=== PATIENT | male | born 1945 | race Caucasian/White ===

== ENCOUNTER 2017-11-08 14:23 | Emergency (ER) | payer MEDICARE, BC ==
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
[2017-11-08] MEDS ORDERED: Lidocaine 1% with EPINEPHrine 1:100,000 50 ML MDV INFILT ONE (15:10)
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
[2017-11-08] MEDS ORDERED: Diphtheria,Pertussis(Acell),Tetanus Vaccine 0.5 ML SDV IM ONE (16:44)
[2017-11-08] MEDS ORDERED: Bacitracin Oint 1 GM U/D Packet TOP ONE (16:44)
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
--- NOTE | 2017-11-09 09:02 | CR ---
Forearm 2V Rt CLINICAL HISTORY: Pain, fall FINDINGS: There is a dominantly transverse comminuted fracture of the mid ulna. There is minimal disp lacement Impression: Minimally displaced comminuted mid ulnar fracture
== END 2017-11-08 17:30 | disposition home or self-care (01) ==
LOC: JP.ED 14:23
DX: S52.251A Displaced comminuted fracture of shaft of ulna, right arm, initial encounter for closed fracture (principal); S01.01XA Laceration without foreign body of scalp, initial encounter; S00.31XA Abrasion of nose, initial encounter; V29.40XA Motorcycle driver injured in collision with unspecified motor vehicles in traffic accident, initial encounter; E78.00 Pure hypercholesterolemia, unspecified; Z23 Encounter for immunization
CPT/HCPCS: 12005; 12035; 29065; 73090-26-RT; 73090-RT; 90471; 90715; 99284; 99284-25